=== PATIENT | female | born 1985 | race Caucasian/White ===

== ENCOUNTER → 2016-10-18 | Outpatient (CLI) | payer OTHER ==
[2016-10-18 17:58] LABS: MEAN CORPUSCULAR HEMOGLOBIN 29.6 pg (27.0-33.0); MEAN CORPUSCULAR HGB CONC 34.2 g/dl (32.0-36.5); MEAN CORPUSCULAR VOLUME 86.5 fl (80.0-96.0); PLATELET COUNT, AUTOMATED 315 k/mm3 (150-450); RED CELL DISTRIBUTION WIDTH 12.1 % (11.5-14.5); WHITE BLOOD COUNT 8.3 K/mm3 (4.0-10.0)
[2016-10-18 19:27] LABS: BASOPHILS 2 % (0-4)
[2016-10-21 11:38] LABS: HIV SCRN NEGATIVE (NEGATIVE)
[2016-10-21 11:39] LABS: HIV SCRN1 NEGATIVE (NEGATIVE)
[2016-10-21 11:41] LABS: CONTROL LINE INT CTR LINE PRESENT
== END ==
LOC: M SMT 13:17
PROVIDERS: ATTEND Specialist
DX: Z36 Encounter for antenatal screening of mother (principal); Z3A.00 Weeks of gestation of pregnancy not specified

== ENCOUNTER → 2017-01-17 | Outpatient (CLI) | payer OTHER ==
--- NOTE | 2017-01-17 17:12 | REP ---
OB ULTRASOUND: Real-time sonographic evaluation of the gravid uterus is performed. There is a single living intrauterine gestation. The estimated gestational age is 20 weeks 3 days. EDC 06/03/2017. Today's measurements indicate appropriate growth. BPD 45 mm = 19 weeks 4 days, at the 27th percentile. HC 171 mm = 19 weeks 5 days, at the 28th percentile. AC 166 mm = 21 weeks 4 day, at the 75th percentile. Femur length 35 mm = 21 weeks 1 days, at the 69th percentile. HC/AC ratio 1.03 slightly below normal range of 1.06 to 1.24. Estimated weight 402 grams 73rd percentile. Cervix is closed measures 5.3 cm in length. heart rate 150 beats per minute. SEEN/GROSSLY UNREMARKABLE Lateral ventricles Yes Posterior fossa Yes Upper lip Yes Four-chamber heart NO LVOT Yes RVOT NO Stomach Yes Cord insertion Yes Three vessel cord Yes Kidneys Yes Bladder Yes Spine Yes position: Breech Placenta: Anterior and grade 0 with no previa or abruption. Amniotic fluid: Within normal limits. Signed by Neel Soares MD 01/20/2017 12:34 P
== END ==
LOC: M SMT 14:52
PROVIDERS: ATTEND Specialist
DX: Z36 Encounter for antenatal screening of mother (principal); Z3A.20 20 weeks gestation of pregnancy

== ENCOUNTER → 2017-02-21 | Outpatient (CLI) | payer OTHER ==
[~2017-02-21] MED LIST: ACET50TA PO; IBUP-1114 PO; PRENTAB9 PO
--- NOTE | 2017-02-21 14:29 | REP ---
Obstetric ultrasound for follow-up of anatomy: Comparison is 01/17/2017. On the comparison study the four-chamber view of the heart and the cardiac right ventricular outflow tract were not optimally demonstrated. Otherwise, there are no anomalies on the prior study. On the study today there is again a single intrauterine gestation. Fetus is in a breech presentation. There is movement and cardiac activity, the heart rate is 147 beats per minute. The placenta is anterior. There is no placenta previa or abruptio. The placenta is grade zero maturity. Amniotic fluid volume subjectively is normal. Cervix is 3.5 cm length. Maternal adnexa and cul-de-sac are unremarkable. On the study today the four-chamber view of the heart and the cardiac right ventricular outflow tract are satisfactorily demonstrated and unremarkable. The remainder of the anatomy previously was unremarkable. Therefore, no anomalies are identified. Signed by Neel Tolbert MD 02/21/2017 02:20 P
== END ==
LOC: M SMT 13:05
PROVIDERS: ATTEND Specialist
DX: Z36 Encounter for antenatal screening of mother (principal); Z3A.00 Weeks of gestation of pregnancy not specified

== ENCOUNTER → 2017-03-04 | Outpatient (CLI) | payer OTHER ==
[2017-03-04 13:39] LABS: BASO % 0.5 % (0.0-1.0); EOS # 0.1 K/mm3 (0.0-0.50); EOS % 1.2 % (0.0-3.0); LARGE UNSTAINED CELL # 0.4 K/mm3 (0.0-0.4); LARGE UNSTAINED CELL % 3.6 % (0.0-4.0); LYMPH # 2.2 K/mm3 (1.5-6.5); LYMPH % 18.5 % (24.0-44.0); MEAN CORPUSCULAR HEMOGLOBIN 30.2 pg (27.0-33.0); MEAN CORPUSCULAR HGB CONC 33.8 g/dl (32.0-36.5); MEAN CORPUSCULAR VOLUME 89.4 fl (80.0-96.0); MONO % 10.5 % (0.0-5.0); NEUTROPHILS # 6.4 K/mm3 (1.8-7.7); NEUTROPHILS % 65.6 % (36.0-66.0); PLATELET COUNT, AUTOMATED 327 k/mm3 (150-450); RED CELL DISTRIBUTION WIDTH 13.1 % (11.5-14.5); WHITE BLOOD COUNT 9.7 K/mm3 (4.0-10.0)
== END ==
LOC: M SMT 10:03
PROVIDERS: ATTEND Specialist
DX: Z34.82 Encounter for supervision of other normal pregnancy, second trimester (principal)

== ENCOUNTER → 2017-05-07 | Outpatient (REF) | payer OTHER | LOC: M LAB REF 13:11 | PROVIDERS: ATTEND Advanced Practice Midwife | DX: Z34.83 Encounter for supervision of other normal pregnancy, third trimester (principal) ==

== ENCOUNTER 2017-06-04 06:20 | Inpatient (IN) | payer OTHER ==
[2017-06-04] VITALS (8 sets, daily range): BP systolic 116–129; BP diastolic 64–80
[~2017-06-04] VITALS: Ht 167.6 cm; Wt 103.8 kg
[2017-06-04] MEDS ORDERED: OXYTOCIN DRIP 30 UNITS in APPROPRIATE DILUENT 1 EA IV SCH (06:34)
[2017-06-04] MEDS ORDERED: LR 1,000 ML IV SCH (06:34)
[2017-06-04] MEDS ORDERED: PROMETHAZINE 25 MG TAB PO PRN (06:45)
[2017-06-04] MEDS ORDERED: RHOGAM 300 MCG (1500 IU) INJ (J2790) IM SCH (06:45)
[2017-06-04] MEDS ORDERED: ACETAMINOPHEN 500 MG TAB PO PRN (06:45)
[2017-06-04] MEDS ORDERED: MEASLES,MUMPS,RUBELLA VACCINE INJ (MMR-II) (90707) SC SCH (06:45)
[2017-06-04] MEDS ORDERED: DOCUSATE SODIUM 100 MG CAP PO PRN (06:45)
[2017-06-04] MEDS ORDERED: LIDOCAINE 1% MDV INJ 50 ML VIAL INFIL ONE (06:45)
[2017-06-04] MEDS ORDERED: DIBUCAINE 1% OINTMENT 30GM TOP PRN (06:45)
[2017-06-04] MEDS ORDERED: ONDANSETRON 4MG/2ML VIAL (J2405) IV PRN (06:45)
[2017-06-04] MEDS ORDERED: OXYTOCIN INJ 10 UNITS/ML VIAL (J2590) IM ONE (07:46)
[2017-06-04] MEDS: IBUPROFEN 800 MG TAB PO PRN ×2 (08:54→19:00)
[2017-06-04] MEDS: PRENATAL VITAMINS CHEWABLE TABLET PO SCH (08:54)
[2017-06-04 09:27] LABS: MEAN CORPUSCULAR HEMOGLOBIN 28.6 pg (27.0-33.0); MEAN CORPUSCULAR HGB CONC 33.4 g/dl (32.0-36.5); MEAN CORPUSCULAR VOLUME 85.7 fl (80.0-96.0); RED CELL DISTRIBUTION WIDTH 13.2 % (11.5-14.5); WHITE BLOOD COUNT 18.7 10^3/uL (4.0-10.0)
[2017-06-05] MEDS: IBUPROFEN 800 MG TAB PO PRN (05:48)
[2017-06-05 06:00] VITALS: BP 108/61
[2017-06-05 08:14] VITALS: BP 121/73
[2017-06-05] MEDS: PRENATAL VITAMINS CHEWABLE TABLET PO SCH (08:21)
[2017-06-05] MEDS ORDERED: PRENTAB9 PO (10:00)
[2017-06-05] MEDS ORDERED: IBUP-1114 PO (10:00)
[2017-06-05] MEDS ORDERED: ACET50TA PO (10:00)
== END 2017-06-05 13:00 | disposition home or self-care (01) | DRG 775 ==
LOC: M LDI 06:20 → M OBS 09:55
PROVIDERS: ADMIT Obstetrics & Gynecology; ATTEND Obstetrics & Gynecology
PROC: 10E0XZZ Delivery of Products of Conception, External Approach (ICD-10-PCS; principal; 2017-06-04)
PROC: 0HQ9XZZ Repair Perineum Skin, External Approach (ICD-10-PCS; 2017-06-04)
DX: O48.0 Post-term pregnancy (principal); Z3A.40 40 weeks gestation of pregnancy; O70.0 First degree perineal laceration during delivery; Z37.0 Single live birth